=== PATIENT | female | born 1960 | race African-American/Black ===

== ENCOUNTER → 2018-06-09 | Outpatient (CLI) | payer BC | LOC: MC.RAD 09:18 | DX: Z12.31 Encounter for screening mammogram for malignant neoplasm of breast (principal) ==

== ENCOUNTER 2020-09-11 11:32 | Outpatient (RCR) | payer OTHER | END 2020-09-11 12:00 | disposition home or self-care (01) | LOC: WSOH 11:32 | DX: M77.11 Lateral epicondylitis, right elbow (principal); Z90.710 Acquired absence of both cervix and uterus; Y99.0 Civilian activity done for income or pay ==

== ENCOUNTER → 2022-06-16 | Outpatient (CLI) | payer BC | LOC: MC.RAD 09:38 | DX: Z12.31 Encounter for screening mammogram for malignant neoplasm of breast (principal) ==

== ENCOUNTER → 2024-01-28 | Outpatient (CLI) | payer BC | LOC: MC.RAD 09:40 | DX: Z12.31 Encounter for screening mammogram for malignant neoplasm of breast (principal) ==